=== PATIENT | male | born 1930 | race Caucasian/White ===

== ENCOUNTER 2016-12-28 03:33 | Emergency (ER) | payer MEDICARE ==
[~2016-12-28] VITALS: Ht 172.7 cm; Wt 63.5 kg
[~2016-12-28 03:33] MED LIST: ACTIVE-Q200 MG PO; AMLODIPINE BESYL5 MG PO; AZOPT10 ML OU; CO Q-10100 MG PO; COMBIGAN EYE DRO5 ML OU; FERROUS SULFAT325 MG PO; FISH OIL 1,0001 EAC5 PO; HOMOCYSTEINE F1 EACH PO; HUMALOG100 UNIT/1 SUB-Q; LANTUS100 UNITS/ SUB-Q; LUMIGAN2.5 M1 OU; OXYCODONE-ACET1 EAC1 PO; PLAVIX75 MG PO; PROMETHAZINE HC25 M1 PO; RANITIDINE HCL150 MG PO; VITAMIN D35000 UNIT PO
[2016-12-28] MEDS ORDERED: AMLODIPINE BESYL5 MG PO (03:56)
[2016-12-28] MEDS ORDERED: CLOPIDOGREL75 MG PO (03:56)
--- NOTE | 2016-12-28 16:44 | EKG ---
[facility] [address] [place] [address] Signed Sinus bradycardia Otherwise normal ECG When compared with ECG of 24-MAY-2016 04:07, QT has lengthened Confirmed by MARY ELLEN LARSON MD ([id number]) on 12/28/2016 4:44:27 PM Electronically Signed By: MARY ELLEN LARSON MD 12/28/16 1644 PATIENT NAME: ALIZE BUCHANAN LINUSTONJA Electrocardiogram DATE OF : 30 PHYSICIAN: MARY ELLEN LARSON MD REPORT #: [id number] REPORT IS CONFIDENTIAL AND NOT TO BE RELEASED WITHOUT AUTHORIZATION
== END 2016-12-28 07:05 | disposition home or self-care (01) ==
LOC: ED 03:33
DX: R41.82 Altered mental status, unspecified (principal); E11.649 Type 2 diabetes mellitus with hypoglycemia without coma; R47.81 Slurred speech; Z79.01 Long term (current) use of anticoagulants; Z79.4 Long term (current) use of insulin; Z79.899 Other long term (current) drug therapy
CPT/HCPCS: 70450; 71010; 80053; 84484; 85025; 93005; 93010; 99284